=== PATIENT | female | born 1965 | race Caucasian/White ===

== ENCOUNTER 2024-09-29 17:00 | Outpatient (RCR) | payer BC, SELFPAY | END 2025-01-18 13:52 | disposition home or self-care (01) | PROVIDERS: PCP Family Medicine; Visit Provider Family Medicine | DX: M65.4 Radial styloid tenosynovitis [de Quervain] (principal); R53.1 Weakness; M25.641 Stiffness of right hand, not elsewhere classified; M25.541 Pain in joints of right hand; Z51.89 Encounter for other specified aftercare | CPT/HCPCS: 97033; 97035; 97140; 97165; 97530; L3806 ==